=== PATIENT | female | born 1960 | race African-American/Black ===

== ENCOUNTER 2019-02-27 09:36 | Observation (INO) | payer BC ==
--- NOTE | 2019-02-27 09:58 | ER Document Report ---
ED Medical Screen (RME) - General Chief Complaint: Leg Pain Stated Complaint: LEG PAIN Time Seen by Provider: 02/27/19 09:47 Mode of Arrival: Wheelchair Information source: Patient Notes: Patient presents complaining of right leg pain. Patient states that she had attempted to treat her leg pain with topical tiger balm and thinks that she may be having an allergic reaction to the medicine. Patient with extensive swelling and erythema and purulent drainage that is weeping from her wounds. Patient only reports a history of RA and OA. I have greeted and performed a rapid initial assessment of this patient. A comprehensive ED assessment and evaluation of the patient, analysis of test results and completion of the medical decision making process will be conducted by additional ED providers. TRAVEL OUTSIDE OF THE [place] IN LAST 30 DAYS: No - Related Data Allergies/Adverse Reactions: No Known Allergies Allergy (Verified 02/27/19 09:37) Physical Exam - Vital signs Vitals: Temp Pulse Resp BP Pulse Ox 98.6 F 113 H 16 137/61 H 96 02/27/19 09:48 02/27/19 09:48 02/27/19 09:48 02/27/19 09:48 02/27/19 09:48 - General Notes: 3+ edema to right lower extremity with erythema and purulent drainage weeping from wounds Course - Vital Signs Vital signs: Temp Pulse Resp BP Pulse Ox 98.6 F 113 H 16 137/61 H 96 02/27/19 09:48 02/27/19 09:48 02/27/19 09:48 02/27/19 09:48 02/27/19 09:48
--- NOTE | 2019-02-27 11:18 | ER Document Report ---
ED Extremity Problem, Lower - General Chief Complaint: Leg Pain Stated Complaint: LEG PAIN Time Seen by Provider: 02/27/19 09:47 Mode of Arrival: Wheelchair Information source: Patient Notes: Chief complaint: Right lower leg swelling History of complain:( obtained from----patient) 58 years old female presents today with right lower leg gradual swelling redness as well as oozing serosanguineous fluid for the last few days. Denies any pain. Denies any difficulty in breathing. Denies any fever chills or other constitutional symptoms. Onset: As above Duration: Gradual Severity: Moderate Quality: Unknown Context: Unknown Exacerbating factor and relieving factors: None REVIEW OF SYSTEMS: CONSTITUTIONAL : Denies fever, chills, or sweats. Denies recent illness. EENT: Denies eye, ear, throat, or mouth pain or symptoms. Denies nasal or sinus congestion or discharge. Denies throat, tongue, or mouth swelling or difficulty swallowing. CARDIOVASCULAR: Denies chest pain. Denies palpitations or racing or irregular heart beat. Denies ankle edema. RESPIRATORY: Denies cough, cold, or chest congestion. Denies shortness of breath, difficulty breathing, or wheezing. GASTROINTESTINAL: Denies distention. Denies nausea, vomiting, or diarrhea. Denies blood in vomitus, stools, or per rectum. Denies black, tarry stools. Denies constipation. GENITOURINARY: Denies difficulty urinating, painful urination, burning, frequency, blood in urine, or discharge. FEMALE GENITOURINARY: Denies vaginal bleeding, heavy or abnormal periods, irregular periods. Denies vaginal discharge or odor. MUSCULOSKELETAL: As per history of complain SKIN: Denies rash, lesions or sores. HEMATOLOGIC : Denies easy bruising or bleeding. LYMPHATIC: Denies swollen, enlarged glands. NEUROLOGICAL: Denies confusion or altered mental status. Denies passing out or loss of consciousness. Denies dizziness or lightheadedness. Denies headache. Denies weakness or paralysis or loss of use of either side. Denies problems with gait or speech. Denies sensory loss, numbness, or tingling. Denies seizures. PSYCHIATRIC: Denies anxiety or stress. Denies depression, suicidal ideation, or homicidal ideation. ALL OTHER SYSTEMS REVIEWED AND NEGATIVE. PHYSICAL EXAMINATION: GENERAL: Well-appearing, well-nourished and in no acute distress. Not seems to be in any acute distress HEAD: Atraumatic, normocephalic. EYES: Pupils equal round and reactive to light, extraocular movements intact, conjunctiva are normal. ENT: Nares patent, oropharynx clear without exudates. Moist mucous membranes. NECK: Normal range of motion, supple without lymphadenopathy LUNGS: Breath sounds clear to auscultation bilaterally and equal. No wheezes rales or rhonchi. HEART: Regular rate and rhythm without murmurs ABDOMEN: Soft, nontender, nondistended abdomen. No guarding, no rebound. No masses appreciated. Examination of genitals-deferred Musculoskeletal: Examination of the right lower leg, the entire leg is double the size of the left one, with diffuse erythema to mites warm and tender to touch, multiple pustules, which are oozing serosanguineous fluid. NEUROLOGICAL: Cranial nerves grossly intact. Normal speech, normal gait. Normal sensory, motor exams PSYCH: Normal mood, normal affect. SKIN: Warm, Dry, normal turgor, no rashes or lesions noted. Dictation was performed using [employer] voice recognition software TRAVEL OUTSIDE OF THE [place] IN LAST 30 DAYS: No - HPI Notes: Dictated - Related Data Allergies/Adverse Reactions: No Known Allergies Allergy (Verified 02/27/19 09:37) Past Medical History - General Information source: Patient - Social History Smoking Status: Never Smoker Frequency of alcohol use: None Lives with: Family Family History: Reviewed & Not Pertinent Patient has suicidal ideation: No Patient has homicidal ideation: No Review of Systems - Review of Systems Notes: Dictated Physical Exam - Vital signs Vitals: Temp Pulse Resp BP Pulse Ox 98.6 F 113 H 16 137/61 H 96 02/27/19 09:48 02/27/19 09:48 02/27/19 09:48 02/27/19 09:48 02/27/19 09:48 - Notes Notes: Dictated Course - Vital Signs Vital signs: Temp Pulse Resp BP Pulse Ox 98.6 F 113 H 16 137/61 H 96 02/27/19 09:48 02/27/19 09:48 02/27/19 09:48 02/27/19 09:48 02/27/19 09:48 - Laboratory Result Diagrams: 02/27/19 11:26 02/27/19 11:26 Laboratory results interpreted by me: 02/27/19 02/27/19 11:26 11:26 Hgb 10.7 L Hct 31.9 L Potassium 3.3 L Est GFR (MDRD) Non-Af 59 L - Diagnostic Test Radiology reviewed: Reports reviewed - Venous Doppler studies reported by video technician as negative for DVT Discharge - Discharge Clinical Impression: Cellulitis of right leg, Leg edema, right Condition: Fair Disposition: ADMITTED INPATIENT Admitting Provider: Alexia (Hospitalist)
[2019-02-27 11:50] LABS: ABSOLUTE BASOPHILS # (AUTO) 0.1 10^3/uL (0.0-0.2); ABSOLUTE EOSINOPHILS # (AUTO) 0.3 10^3/uL (0.0-0.6); ABSOLUTE LYMPHOCYTES (AUTO) 1.8 10^3/uL (0.5-4.7); ABSOLUTE MONOCYTES (AUTO) 1.1 10^3/uL (0.1-1.4); ABSOLUTE NEUT (AUTO) 7.1 10^3/uL (1.7-8.2); BASOPHILS % (AUTO) 0.6 % (0-2); EOSINOPHILS % (AUTO) 2.9 % (0-6); HEMATOCRIT 31.9 % (36.0-47.0); HEMOGLOBIN 10.7 g/dL (12.0-15.5); LYMPHOCYTES % (AUTO) 17.7 % (13-45); MEAN CORPUSCULAR HGB CONC 33.6 g/dL (32.0-36.0); MEAN CORPUSCULAR VOLUME 80 fl (80-97); MONOCYTES % (AUTO) 10.7 % (3-13); PLATELET COUNT 320 10^3/uL (150-450); RED BLOOD COUNT 3.98 10^6/uL (3.72-5.28); RED CELL DISTRIBUTION WIDTH 13.7 % (11.5-14.0); SEGMENTED NEUTROPHILS % (AUTO) 68.1 % (42-78); TOTAL CELLS COUNTED % (AUTO) 100 %; WHITE BLOOD COUNT 10.4 10^3/uL (4.0-10.5)
[2019-02-27 12:09] LABS: ALBUMIN 3.8 g/dL (3.5-5.0); ALKALINE PHOSPHATASE 73 U/L (38-126); ANION GAP 11 (5-19); ASPARTATE AMINO TRANSFERASE 26 U/L (14-36); BILIRUBIN,DIRECT 0.2 mg/dL (0.0-0.4); BILIRUBIN,TOTAL 0.5 mg/dL (0.2-1.3); BLOOD UREA NITROGEN 17 mg/dL (7-20); CALCIUM 9.1 mg/dL (8.4-10.2); CARBON DIOXIDE 28 mmol/L (22-30); CHLORIDE 102 mmol/L (98-107); GLUCOSE 108 mg/dL (75-110); POTASSIUM 3.3 mmol/L (3.6-5.0); TOTAL PROTEIN 7.4 g/dL (6.3-8.2)
[2019-02-27] MEDS ORDERED: ONDANSETRON HCL INJ/PF 4 MG/2 ML SDV IV PRN (14:43)
--- NOTE | 2019-02-27 14:43 | PDOC H&P ---
History of Present Illness Patient complains of: rt lower leg swelling and pain History of Present Illness: YADI LI is a 58 year old female with history of rheumatoid arthritis and osteoarthritis taking Aleve for pain went to see the primary care physician today with complaints of right lower leg swelling associated with the increased redness pain oozing and she was referred to the emergency room for further evaluation. In the emergency room work-up indicates cellulitis with possible skin abscesses and a DVT studies are negative medical consult was called for further management. Patient never had a history of diabetes hypertension or congestive heart failure. She did not have any wounds in the lower extremities prior to this arrival. Denies any fevers denies any nausea vomiting diarrhea or skin rashes at home. Past Medical History Cardiac Medical History: Reports: None Pulmonary Medical History: Reports: None EENT Medical History: Reports: None Neurological Medical History: Reports: None Endocrine Medical History: Reports: None Malignancy Medical History: Reports: None GI Medical History: Reports: None Psychiatric Medical History: Reports: None Traumatic Medical History: Reports: None Infectious Medical History: Reports: None Social History Information Source: Patient Lives with: Family Smoking Status: Never Smoker Frequency of Alcohol Use: None Hx Recreational Drug Use: No Hx Prescription Drug Abuse: No - Advance Directive Resuscitation Status: Full Code Family History Family History: Reviewed & Not Pertinent Parental Family History Reviewed: Yes - Family history of hypertension diabetes mellitus Children Family History Reviewed: Yes Sibling(s) Family History Reviewed.: Yes Medication/Allergy Allergies/Adverse Reactions: No Known Allergies Allergy (Verified 02/27/19 09:37) Review of Systems Constitutional: PRESENT: fatigue, weakness. ABSENT: fever(s), headache(s), night sweats Eyes: ABSENT: visual disturbances Ears: ABSENT: hearing changes Nose, Mouth, and Throat: ABSENT: sore throat Cardiovascular: ABSENT: dyspnea on exertion, orthropnea, palpitations Respiratory: ABSENT: hemoptysis Gastrointestinal: ABSENT: abdominal pain, constipation, diarrhea, hematemesis, hematochezia, nausea, vomiting Genitourinary: ABSENT: dysuria, hematuria Musculoskeletal: PRESENT: other - Pain in the lower extremity Integumentary: PRESENT: wounds - Patient has right lower leg cellulitis with wounds and possible abscesses. Neurological: ABSENT: abnormal gait, abnormal speech, confusion, dizziness, focal weakness, syncope Psychiatric: ABSENT: anxiety, depression, homidical ideation, suicidal ideation Physical Exam Vital Signs: Temp Pulse Resp BP Pulse Ox 98.6 F 113 H 16 137/61 H 96 02/27/19 09:48 02/27/19 09:48 02/27/19 09:48 02/27/19 09:48 02/27/19 09:48 Intake & Output 02/26/19 02/27/19 02/28/19 06:59 06:59 06:59 Weight 95.254 kg General appearance: PRESENT: no acute distress, obese Head exam: PRESENT: atraumatic Eye exam: PRESENT: PERRLA Mouth exam: PRESENT: moist, tongue midline Teeth exam: PRESENT: poor dentation Neck exam: ABSENT: carotid bruit, JVD, lymphadenopathy, thyromegaly Respiratory exam: PRESENT: decreased breath sounds Cardiovascular exam: PRESENT: RRR. ABSENT: diastolic murmur, rubs, systolic murmur GI/Abdominal exam: PRESENT: normal bowel sounds, soft. ABSENT: distended, gu arding, mass, organolmegaly, rebound, tenderness Rectal exam: PRESENT: deferred Extremities exam: PRESENT: tenderness, +2 edema, other - Patient has past failed skin lesions and abscess on the anterior aspect of the right lower leg. Neurological exam: PRESENT: alert, awake, oriented to person, oriented to place, oriented to time, oriented to situation, CN II-XII grossly intact. ABSENT: motor sensory deficit Psychiatric exam: PRESENT: appropriate affect, normal mood. ABSENT: homicidal ideation, suicidal ideation Skin exam: PRESENT: erythema, vesicles Results Laboratory Results: 02/27/19 11:26 02/27/19 11:26 02/27/19 02/27/19 11:26 11:26 WBC 10.4 RBC 3.98 Hgb 10.7 L Hct 31.9 L MCV 80 MCH 27.0 MCHC 33.6 RDW 13.7 Plt Count 320 Seg Neutrophils % 68.1 Sodium 141.1 Potassium 3.3 L Chloride 102 Carbon Dioxide 28 Anion Gap 11 BUN 17 Creatinine 0.96 Est GFR ( Amer) > 60 Glucose 108 Calcium 9.1 Total Bilirubin 0.5 AST 26 Alkaline Phosphatase 73 Total Protein 7.4 Albumin 3.8 02/27/19 11:26 NT-Pro-B Natriuret Pep 35 Assessment and Plan - Diagnosis (1) Cellulitis of right leg Is this a current diagnosis for this admission?: Yes Plan: 02/27/2019 1 patient is going to be admitted to medical floor. To start her on IV Unasyn. Blood cultures urine cultures MRSA screening was done. GI prophylaxis DVT prophylaxis will be initiated. Consultation with surgery was requested. Diet exercise weight loss recommended. DVT studies are negative. May need arterial Doppler. (2) Obesity (BMI 30-39.9) Is this a current diagnosis for this admission?: No Plan: 02/27/2019-patient BMI is more than 39 diet exercise weight loss lifestyle mo difications are discussed with the patient. (3) Hypokalemia Is this a current diagnosis for this admission?: Yes Plan: 02/27- pt potassium is 3.3 .. to give potassium suplementation. - Time Time Spent with patient: 25-34 minutes Smoking Cessation Education: over 10 minutes Medications reviewed and adjusted accordingly: Yes Anticipated discharge: Home
[2019-02-27] MEDS ORDERED: OXYCODONE-ACETAMINOPHEN 5-325 MG TABLET PO PRN (14:53)
--- NOTE | 2019-02-27 14:58 | XCELERA REPORT ---
[address] [facility] [address] [facility] Extrem[facility] Venous Evaluation Procedure: Color flow and duplex imaging of the veins of the right lower extremity as well as the left Common Femoral vein. Right Sided Venous Evaluation Some limitation due to presence of weeping and blisters. Normal vessel filling wall to wall, compression and augmentation as well as Colour flow down to the infrageniculate veins. Left Sided Venous Evaluation The left common femoral vein is fully compressible. Spontaneous and phasic flow is present in the left common femoral vein. Interpretation Summary No duplex evidence of DVT or obstruction in the right lower extremity nor in the left Common Femoral vein. Name: YADI LI Age: 58 yrs Gender: Female : 1960 Patient Status: Emergency Patient Location: ER Study Date: 02/27/2019 12:01 PM Reason For Study: Right leg swelling/rule out DVT Ordering Physician: KENNY CASEY Performed By: Ana Cristina Pemberton : KENNY CASEY > Wilian Gutierrez
[2019-02-27] MEDS ORDERED: AMPICILLIN SOD/SULBACTAM 3 GM VIAL IV SCH (15:00)
[2019-02-27 15:22] LABS: INTERNATIONAL RATION (INR) 1.13; PROTHROMBIN TIME 14.6 SEC (11.4-15.4)
--- NOTE | 2019-02-27 15:38 | PDOC CONSULTATION ---
Consultation Consult Date: 02/27/19 Provider Consulted: MARYAM DUPREE Consult reason:: Right leg cellulitis and blistering History of Present Illness Admission Date/PCP: 02/27/19 15:12 History of Present Illness: YADI LI is a 58 year old female, morbidly obese, with a 3-4 day hx of leg redness, swelling, and blistering. Because of the symptoms, the patient is applied a topical corticosteroid cream with worsening of the symptoms. She presents the emergency room with a ball of the leg and above symptoms. Past Medical History Cardiac Medical History: Reports: None Pulmonary Medical History: Reports: None EENT Medical History: Reports: None Neurological Medical History: Reports: None Endocrine Medical History: Reports: None Malignancy Medical History: Reports: None GI Medical History: Reports: None Psychiatric Medical History: Reports: None Traumatic Medical History: Reports: None Infectious Medical History: Reports: None Social History Lives with: Family Smoking Status: Never Smoker Frequency of Alcohol Use: None Hx Recreational Drug Use: No Hx Prescription Drug Abuse: No - Advance Directive Resuscitation Status: Full Code Family History Family History: Reviewed & Not Pertinent Parental Family History Reviewed: No Children Family History Reviewed: No Sibling(s) Family History Reviewed.: No Medication/Allergy Allergies/Adverse Reactions: No Known Allergies Allergy (Verified 02/27/19 09:37) Physical Exam Vital Signs: Temp Pulse Resp BP Pulse Ox 98.6 F 113 H 16 137/61 H 96 02/27/19 09:48 02/27/19 09:48 02/27/19 09:48 02/27/19 09:48 02/27/19 09:48 Intake & Output 02/26/19 02/27/19 02/28/19 06:59 06:59 06:59 Weight 95.254 kg General appearance: PRESENT: no acute distress, obese Head exam: PRESENT: atraumatic, normocephalic Eye exam: PRESENT: EOMI Mouth exam: PRESENT: moist, neck supple Respiratory exam: PRESENT: clear to auscultation gideon Cardiovascular exam: PRESENT: RRR GI/Abdominal exam: PRESENT: normal bowel sounds, soft, other - obese Rectal exam: PRESENT: deferred Extremities exam: PRESENT: full ROM, other - Right Lower extrermity= edema of the leg down to toes, diffuse erythema of the lower distal 1/2 leg, assiciated with circumferential blistering of skin, no odor, serous drainage Musculoskeletal exam: PRESENT: full ROM Skin exam: PRESENT: other - see above Results Laboratory Results: 02/27/19 11:26 02/27/19 11:26 02/27/19 02/27/19 11:26 11:26 WBC 10.4 RBC 3.98 Hgb 10.7 L Hct 31.9 L MCV 80 MCH 27.0 MCHC 33.6 RDW 13.7 Plt Count 320 Seg Neutrophils % 68.1 Sodium 141.1 Potassium 3.3 L Chloride 102 Carbon Dioxide 28 Anion Gap 11 BUN 17 Creatinine 0.96 Est GFR ( Amer) > 60 Glucose 108 Calcium 9.1 Total Bilirubin 0.5 AST 26 Alkaline Phosphatase 73 Total Protein 7.4 Albumin 3.8 02/27/19 11:26 NT-Pro-B Natriuret Pep 35 Assessment & Plan - Diagnosis (1) Cellulitis of right leg Is this a current diagnosis for this admission?: Yes (2) Leg edema, right Is this a current diagnosis for this admission?: Yes - Plan Summary Plan Summary: Assessment Morbid obese patient with right leg diffuse edema, erythema, and skin blistering with serous drainage Above symptoms worsened by the use of topical corticosteroid cream RLE venous duplex is negative for DVT WBC within normal limits Plan: I agree with admission Agree with choice of IV antibiotics By triple antibiotic ointment to the entire leg followed by Xeroform gauze Ker lix and Sorin bandages Keep the right lower extremity elevated above heart level Strict bedrest with bathroom privileges Will will follow the patient daily
[2019-02-27 15:44] LABS: TROPONIN I < 0.012 ng/mL
--- NOTE | 2019-02-27 15:45 | RADIOLOGY REPORT (SQ) ---
EXAM DESCRIPTION: CHEST 2 VIEWS COMPLETED DATE/TIME: 02/27/2019 3:15 pm REASON FOR STUDY: shortness of breath COMPARISON: None. EXAM PARAMETERS: NUMBER OF VIEWS: two views TECHNIQUE: Digital Frontal and Lateral radiographic views of the chest acquired. RADIATION DOSE: NA LIMITATIONS: none FINDINGS: LUNGS AND PLEURA: No opacities, masses or pneumothorax. No pleural effusion. MEDIASTINUM AND HILAR STRUCTURES: No masses or contour abnormalities. HEART AND VASCULAR STRUCTURES: Heart normal size. No evidence for failure. BONES: No acute findings. HARDWARE: None in the chest. OTHER: No other significant finding. IMPRESSION: NO ACUTE RADIOGRAPHIC FINDING IN THE CHEST. TECHNICAL DOCUMENTATION: JOB ID: [id number] [employer]- All Rights Reserved Reading location - IP/workstation name: [email or web address]
--- NOTE | 2019-02-27 16:06 | RADIOLOGY REPORT (SQ) ---
EXAM DESCRIPTION: TIBIA FIBULA RIGHT COMPLETED DATE/TIME: 02/27/2019 3:46 pm REASON FOR STUDY: bone tenderness COMPARISON: None. NUMBER OF VIEWS: Two views. TECHNIQUE: Two radiographic images acquired of the right tibia and fibula to include the knee and an kle in at least one projection. LIMITATIONS: None. FINDINGS: MINERALIZATION: Normal. BONES: No acute fracture or dislocation. No worrisome bone lesions. SOFT TISSUES: There is diffuse soft tissue edema. OTHER: No other significant finding. IMPRESSION: Soft tissue edema. No underlying bony abnormality. TECHNICAL DOCUMENTATION: JOB ID: [id number] [employer]- All Rights Reserved Reading location - IP/workstation name: [email or web address]
[2019-02-27] MEDS: PANTOPRAZOLE SODIUM 40 MG TABLET.DR PO SCH (17:03)
[2019-02-27] MEDS: MUPIROCIN 2% OINTMENT 22 GM TP SCH (17:03)
[2019-02-27] MEDS ORDERED: MUPIROCIN 2% OINTMENT 22 GM TP SCH (18:00)
[2019-02-27] MEDS ORDERED: AMPICILLIN SODIUM/SULBACTAM NA 3 GM in NORMAL SALINE 100 ML IV SCH (18:00)
[2019-02-27] MEDS: DOCUSATE SODIUM 100 MG CAPSULE PO SCH (18:54)
[2019-02-27] MEDS: AMPICILLIN SODIUM/SULBACTAM NA 3 GM in NORMAL SALINE 100 ML IV SCH (22:54)
[2019-02-27] MEDS: NORMAL SALINE 1000 ML 1,000 ML IV PRN (22:55)
[2019-02-27 23:54] LABS: CREATINE KINASE MB 0.48 ng/mL (<4.55)
[2019-02-27 23:59] LABS: TROPONIN I < 0.012 ng/mL
[2019-02-28] MEDS: AMPICILLIN SODIUM/SULBACTAM NA 3 GM in NORMAL SALINE 100 ML IV SCH ×4 (05:29→20:55)
[2019-02-28] MEDS: PANTOPRAZOLE SODIUM 40 MG TABLET.DR PO SCH ×2 (05:30→17:06)
[2019-02-28 06:32] LABS: ABSOLUTE BASOPHILS # (AUTO) 0.1 10^3/uL (0.0-0.2); ABSOLUTE EOSINOPHILS # (AUTO) 0.4 10^3/uL (0.0-0.6); ABSOLUTE LYMPHOCYTES (AUTO) 2.3 10^3/uL (0.5-4.7); ABSOLUTE MONOCYTES (AUTO) 0.9 10^3/uL (0.1-1.4); ABSOLUTE NEUT (AUTO) 5.1 10^3/uL (1.7-8.2); BASOPHILS % (AUTO) 0.7 % (0-2); HEMATOCRIT 28.3 % (36.0-47.0); HEMOGLOBIN 9.5 g/dL (12.0-15.5); LYMPHOCYTES % (AUTO) 26.6 % (13-45); MEAN CORPUSCULAR HEMOGLOBIN 26.9 pg (27.0-33.4); MEAN CORPUSCULAR HGB CONC 33.5 g/dL (32.0-36.0); MEAN CORPUSCULAR VOLUME 81 fl (80-97); MONOCYTES % (AUTO) 10.1 % (3-13); PLATELET COUNT 316 10^3/uL (150-450); RED BLOOD COUNT 3.52 10^6/uL (3.72-5.28); RED CELL DISTRIBUTION WIDTH 13.9 % (11.5-14.0); SEGMENTED NEUTROPHILS % (AUTO) 58.6 % (42-78); TOTAL CELLS COUNTED % (AUTO) 100 %; WHITE BLOOD COUNT 8.7 10^3/uL (4.0-10.5)
[2019-02-28 06:57] LABS: ALBUMIN 3.1 g/dL (3.5-5.0); ALKALINE PHOSPHATASE 64 U/L (38-126); ANION GAP 9 (5-19); ASPARTATE AMINO TRANSFERASE 21 U/L (14-36); BILIRUBIN,DIRECT 0.2 mg/dL (0.0-0.4); BILIRUBIN,TOTAL 0.4 mg/dL (0.2-1.3); BLOOD UREA NITROGEN 15 mg/dL (7-20); CALCIUM 8.3 mg/dL (8.4-10.2); CARBON DIOXIDE 26 mmol/L (22-30); CHLORIDE 107 mmol/L (98-107); CHOLESTEROL 166.39 mg/dL (0-200); GLUCOSE 81 mg/dL (75-110); POTASSIUM 3.7 mmol/L (3.6-5.0); TOTAL PROTEIN 6.4 g/dL (6.3-8.2); TRIGLYCERIDES 66 mg/dL (<150)
[2019-02-28 07:05] LABS: CREATINE KINASE MB 0.47 ng/mL (<4.55)
[2019-02-28 07:08] LABS: DIRECT LDL 116 mg/dL (<100)
[2019-02-28 07:13] LABS: TROPONIN I < 0.012 ng/mL
[2019-02-28] MEDS: MUPIROCIN 2% OINTMENT 22 GM TP SCH ×2 (09:47→17:04)
[2019-02-28] MEDS: ENOXAPARIN SODIUM INJ 40 MG/0.4 ML DISP.SYRIN SUBCUT SCH (09:51)
[2019-02-28] MEDS: DOCUSATE SODIUM 100 MG CAPSULE PO SCH ×2 (09:51→17:05)
--- NOTE | 2019-02-28 14:20 | Operative Report ---
Operative Report DATE OF SURGERY: 02/28/19 Operative Report: Debridement right lower leg blisters 10x25 cm with 2x2 cm full skin thickness. PREOPERATIVE DIAGNOSIS: Blisters with one area of full thickness skin blister about 2x2 cm. POSTOPERATIVE DIAGNOSIS: same OPERATION: With the patient supine in bed, the dressings was then taken down. This revealed an extensive area of blister formation wih yellowish collection underneath. This area is about 10x25 cm occupying the whole circumference just above the right ankle. The blisters with underlying formed exudate was rhensharply debrided with scissors and scalpel.There was one area about 2x2 cm with fulll skin thickness that that was also sharply dedrided. There was some clear fluid coming off the skin that was debrided. Patient tolerated well. with minimal bleedig. The wound will be treated with topical silvadene 2x/day then can try compression therapy after a few days. SURGEON: JASMYNE DAVIS TISSUE REMOVED OR ALTERED: Partial skin thickness. No specimen sent for C/S COMPLICATIONS: none ESTIMATED BLOOD LOSS: <1 cc. INTRAOPERATIVE FINDINGS: Blisters all over the right above ankle area about 10 cm circumferential right lower leg PROCEDURE: See operation
[2019-02-28] MEDS: NORMAL SALINE 1000 ML 1,000 ML IV PRN (14:54)
[2019-02-28] MEDS: SILVER SULFADIAZINE 1% CREAM 400 GM TP SCH ×2 (14:54→21:00)
--- NOTE | 2019-02-28 19:10 | PDOC PROGRESS REPORT ---
Subjective Progress Note for:: 02/28/19 Subjective:: YADI LI is a 58 year old female with history of rheumatoid arthritis and osteoarthritis taking Aleve for pain went to see the primary care physician today with complaints of right lower leg swelling associated with the increased redness pain oozing and she was referred to the emergency room for further evaluation. In the emergency room work-up indicates cellulitis with possible skin abscesses and a DVT studies are negative medical consult was called for further management. Patient never had a history of diabetes hypertension or congestive heart failure. She did not have any wounds in the lower extremities prior to this arrival. Denies any fevers denies any nausea vomiting diarrhea or skin rashes at home. Reason For Visit: CELLULITIS/ABSCESS Physical Exam Vital Signs: Temp Pulse Resp BP Pulse Ox 99.6 F 102 H 20 132/71 H 99 02/28/19 14:00 02/28/19 14:00 02/28/19 14:00 02/28/19 14:00 02/28/19 14:00 Intake & Output 02/27/19 02/28/19 03/01/19 06:59 06:59 06:59 Intake Total 200 1460 Balance 200 1460 Weight 95.254 kg General appearance: PRESENT: no acute distress, obese, well-developed, well- nourished Eye exam: PRESENT: conjunctiva pink, EOMI, PERRLA. ABSENT: scleral icterus Respiratory exam: PRESENT: clear to auscultation gideon. ABSENT: rales, rhonchi, wheezes GI/Abdominal exam: PRESENT: normal bowel sounds, soft. ABSENT: distended, guarding, mass, organolmegaly, rebound, tenderness Skin exam: PRESENT: erythema Results Laboratory Results: 02/28/19 05:35 02/28/19 05:35 02/28/19 02/28/19 02/28/19 05:35 05:35 05:35 WBC 8.7 RBC 3.52 L Hgb 9.5 L Hct 28.3 L MCV 81 MCH 26.9 L MCHC 33.5 RDW 13.9 Plt Count 316 Seg Neutrophils % 58.6 Sodium 141.9 Potassium 3.7 Chloride 107 Carbon Dioxide 26 Anion Gap 9 BUN 15 Creatinine 0.92 Est GFR ( Amer) > 60 Glucose 81 Calcium 8.3 L Magnesium 2.0 Total Bilirubin 0.4 AST 21 Alkaline Phosphatase 64 Total Protein 6.4 Albumin 3.1 L Triglycerides 66 Cholesterol 166.39 LDL Cholesterol Direct 116 H VLDL Cholesterol 13.0 HDL Cholesterol 34 L TSH 2.06 02/27/19 11:26 Leg - Lower Gram Stain - Final 02/27/19 02/27/19 02/27/19 11:26 11:26 11:26 Creatine Kinase 126 CK-MB (CK-2) 0.70 Troponin I < 0.012 NT-Pro-B Natriuret Pep 35 02/27/19 02/27/19 02/28/19 22:15 22:15 05:35 Creatine Kinase 126 99 CK-MB (CK-2) 0.48 Troponin I < 0.012 NT-Pro-B Natriuret Pep 02/28/19 05:35 Creatine Kinase CK-MB (CK-2) 0.47 Troponin I < 0.012 NT-Pro-B Natriuret Pep Impressions: Chest X-Ray 02/27/19 00:00 IMPRESSION: NO ACUTE RADIOGRAPHIC FINDING IN THE CHEST. Tibia/Fibula X-Ray 02/27/19 00:00 IMPRESSION: Soft tissue edema. No underlying bony abnormality. Assessment and Plan - Diagnosis (1) Cellulitis of right leg Is this a current diagnosis for this admission?: Yes Plan: Likely due to gram-positives. Day 1 status post bedside I&D by surgery. Day 2 IV antibiotics. Day 2 IV Unasyn. Blood cultures no growth so far. Wound culture positive for gram-positive's. Pending sensitivity. Right lower extremity venous ultrasound negative for DVT. Right lower extremity x-ray negative for osteomyelitis. Continue empiric IV antibiotics, wound care. (2) Hypokalemia Is this a current diagnosis for this admission?: Yes Plan: Resolved. (3) Leg edema, right Is this a current diagnosis for this admission?: Yes Plan: Improving. As per #1. (4) Obesity (BMI 30-39.9) Is this a current diagnosis for this admission?: No Plan: BMI 39.1. A1c, TSH and lipid panel WNL. Diet and lifestyle modification discussed with patient.
[2019-03-01 05:58] LABS: ALBUMIN 3.1 g/dL (3.5-5.0); ALKALINE PHOSPHATASE 66 U/L (38-126); ANION GAP 6 (5-19); ASPARTATE AMINO TRANSFERASE 22 U/L (14-36); BILIRUBIN,DIRECT 0.2 mg/dL (0.0-0.4); BILIRUBIN,TOTAL 0.4 mg/dL (0.2-1.3); BLOOD UREA NITROGEN 14 mg/dL (7-20); CALCIUM 8.4 mg/dL (8.4-10.2); CARBON DIOXIDE 27 mmol/L (22-30); CHLORIDE 110 mmol/L (98-107); GLUCOSE 99 mg/dL (75-110); POTASSIUM 4.4 mmol/L (3.6-5.0); TOTAL PROTEIN 6.7 g/dL (6.3-8.2)
[2019-03-01] MEDS: PANTOPRAZOLE SODIUM 40 MG TABLET.DR PO SCH ×2 (06:23→17:14)
[2019-03-01] MEDS: AMPICILLIN SODIUM/SULBACTAM NA 3 GM in NORMAL SALINE 100 ML IV SCH ×4 (06:31→22:37)
[2019-03-01 06:58] LABS: ABSOLUTE BASOPHILS # (AUTO) 0.1 10^3/uL (0.0-0.2); ABSOLUTE EOSINOPHILS # (AUTO) 0.3 10^3/uL (0.0-0.6); ABSOLUTE LYMPHOCYTES (AUTO) 1.3 10^3/uL (0.5-4.7); ABSOLUTE MONOCYTES (AUTO) 0.5 10^3/uL (0.1-1.4); ABSOLUTE NEUT (AUTO) 5.6 10^3/uL (1.7-8.2); BASOPHILS % (AUTO) 0.8 % (0-2); EOSINOPHILS % (AUTO) 3.4 % (0-6); HEMATOCRIT 28.7 % (36.0-47.0); HEMOGLOBIN 9.5 g/dL (12.0-15.5); LYMPHOCYTES % (AUTO) 16.7 % (13-45); MEAN CORPUSCULAR HGB CONC 33.3 g/dL (32.0-36.0); MEAN CORPUSCULAR VOLUME 81 fl (80-97); MONOCYTES % (AUTO) 6.6 % (3-13); PLATELET COUNT 339 10^3/uL (150-450); RED BLOOD COUNT 3.54 10^6/uL (3.72-5.28); RED CELL DISTRIBUTION WIDTH 13.8 % (11.5-14.0); SEGMENTED NEUTROPHILS % (AUTO) 72.5 % (42-78); TOTAL CELLS COUNTED % (AUTO) 100 %; WHITE BLOOD COUNT 7.7 10^3/uL (4.0-10.5)
[2019-03-01] MEDS: MUPIROCIN 2% OINTMENT 22 GM TP SCH ×2 (09:38→17:15)
[2019-03-01] MEDS: ENOXAPARIN SODIUM INJ 40 MG/0.4 ML DISP.SYRIN SUBCUT SCH (09:42)
[2019-03-01] MEDS: DOCUSATE SODIUM 100 MG CAPSULE PO SCH ×2 (09:42→17:15)
[2019-03-01] MEDS: SILVER SULFADIAZINE 1% CREAM 400 GM TP SCH ×2 (09:55→22:38)
--- NOTE | 2019-03-01 12:16 | PDOC PROGRESS REPORT ---
Subjective Progress Note for:: 03/01/19 Subjective:: YADI LI is a 58 year old female with history of rheumatoid arthritis and osteoarthritis taking Aleve for pain went to see the primary care physician today with complaints of right lower leg swelling associated with the increased redness pain oozing and she was referred to the emergency room for further evaluation. In the emergency room work-up indicates cellulitis with possible skin abscesses and a DVT studies are negative medical consult was called for further management. Patient never had a history of diabetes hypertension or congestive heart failure. She did not have any wounds in the lower extremities prior to this arrival. Denies any fevers denies any nausea vomiting diarrhea or skin rashes at home. 03/01/2018. No acute events overnight. Right lower extremity pain improving, status post bedside I&D by surgery. Denies any fever, chills, nausea, vomiting, diarrhea, constipation or any urinary symptoms. Reason For Visit: CELLULITIS/ABSCESS Physical Exam Vital Signs: Temp Pulse Resp BP Pulse Ox 97.7 F 89 20 127/78 H 100 03/01/19 11:32 03/01/19 11:32 03/01/19 11:32 03/01/19 11:32 03/01/19 11:32 Intake & Output 02/28/19 03/01/19 03/02/19 06:59 06:59 06:59 Intake Total 200 3004 200 Balance 200 3004 200 Weight 95.254 kg 93.8 kg General appearance: PRESENT: morbidly obese Respiratory exam: PRESENT: clear to auscultation gideon. ABSENT: rales, rhonchi, wheezes Cardiovascular exam: PRESENT: RRR. ABSENT: diastolic murmur, rubs, systolic murmur GI/Abdominal exam: PRESENT: normal bowel sounds, soft. ABSENT: distended, guarding, mass, organolmegaly, rebound, tenderness Neurological exam: PRESENT: alert, awake, oriented to person, oriented to place, oriented to time, oriented to situation, CN II-XII grossly intact. ABSENT: motor sensory deficit Skin exam: PRESENT: other - Right lower extremity below-knee cellulitis improving. No side effect of discharge, erythema improving. Results Laboratory Results: 03/01/19 03:29 03/01/19 03:29 03/01/19 03/01/19 03:29 03:29 WBC 7.7 RBC 3.54 L Hgb 9.5 L Hct 28.7 L MCV 81 MCH 27.0 MCHC 33.3 RDW 13.8 Plt Count 339 Seg Neutrophils % 72.5 Sodium 142.7 Potassium 4.4 Chloride 110 H Carbon Dioxide 27 Anion Gap 6 BUN 14 Creatinine 0.85 Est GFR ( Amer) > 60 Glucose 99 Calcium 8.4 Total Bilirubin 0.4 AST 22 Alkaline Phosphatase 66 Total Protein 6.7 Albumin 3.1 L 02/27/19 11:26 Leg - Lower Gram Stain - Final 02/27/19 02/27/19 02/27/19 11:26 11:26 11:26 Creatine Kinase 126 CK-MB (CK-2) 0.70 Troponin I < 0.012 NT-Pro-B Natriuret Pep 35 02/27/19 02/27/19 02/28/19 22:15 22:15 05:35 Creatine Kinase 126 99 CK-MB (CK-2) 0.48 Troponin I < 0.012 NT-Pro-B Natriuret Pep 02/28/19 05:35 Creatine Kinase CK-MB (CK-2) 0.47 Troponin I < 0.012 NT-Pro-B Natriuret Pep Impressions: Chest X-Ray 02/27/19 00:00 IMPRESSION: NO ACUTE RADIOGRAPHIC FINDING IN THE CHEST. Tibia/Fibula X-Ray 02/27/19 00:00 IMPRESSION: Soft tissue edema. No underlying bony abnormality. Assessment and Plan - Diagnosis (1) Cellulitis of right leg Is this a current diagnosis for this admission?: Yes Plan: Polymicrobial. Wound culture growing group B strep and gram-positive cocci in clusters pending sensitivity. Day 1 status post bedside I&D by surgery. Day 3 IV antibiotics. Day 3 IV Unasyn. Blood cultures no growth so far. Right lower extremity venous ultrasound negative for DVT. Right lower extremity x-ray negative for osteomyelitis. Continue empiric IV antibiotics, follow-up cultures continue wound care. Surgery following. Recommendations noted. (2) Hypokalemia Is this a current diagnosis for this admission?: Yes Plan: Resolved. (3) Leg edema, right Is this a current diagnosis for this admission?: Yes Plan: Improving. As per #1. (4) Obesity (BMI 30-39.9) Is this a current diagnosis for this admission?: Yes Plan: BMI 39.1. A1c 6.1. TSH and lipid panel WNL. Diet and lifestyle modification discussed with patient. (5) Elevated hemoglobin A1c Is this a current diagnosis for this admission?: Yes Plan: Hemoglobin A1c 6.1. Fasting blood glucose WNL during hospitalization. Diet and lifestyle modification recommended. Outpatient PCP follow-up. Note: Hemoglobin A1c may be falsely elevated due to anemia. Patient will need to be reevaluated by PCP to rule out diabetes in the future. (6) Anemia Qualifiers: Anemia type: unspecified type Qualified Code(s): D64.9 - Anemia, unspecified Is this a current diagnosis for this admission?: Yes Plan: Normocytic anemia. Iron deficiency. Anemia of chronic disease. Denies any hematemesis, hemoptysis, easy bleeding, vaginal bleeding, melena or hematochezia. We will obtain stool guaiac Iron studies positive for iron deficiency anemia will consult surgery for possible endoscopy.
[2019-03-01 12:36] LABS: ABSOLUTE RETICS # 0.029 10^6/uL (0.028-0.122); RETICULOCYTE COUNT (AUTO) 0.81 % (0.66-2.85)
[2019-03-01 12:40] LABS: IRON(TIBC) 43.7 ug/dL (37-170)
[2019-03-02] MEDS: PANTOPRAZOLE SODIUM 40 MG TABLET.DR PO SCH ×2 (05:44→17:05)
[2019-03-02] MEDS: AMPICILLIN SODIUM/SULBACTAM NA 3 GM in NORMAL SALINE 100 ML IV SCH ×4 (05:50→21:08)
[2019-03-02 07:40] LABS: ABSOLUTE BASOPHILS # (AUTO) 0.1 10^3/uL (0.0-0.2); ABSOLUTE EOSINOPHILS # (AUTO) 0.3 10^3/uL (0.0-0.6); ABSOLUTE LYMPHOCYTES (AUTO) 1.4 10^3/uL (0.5-4.7); ABSOLUTE MONOCYTES (AUTO) 0.4 10^3/uL (0.1-1.4); ABSOLUTE NEUT (AUTO) 3.8 10^3/uL (1.7-8.2); EOSINOPHILS % (AUTO) 4.7 % (0-6); HEMATOCRIT 27.8 % (36.0-47.0); HEMOGLOBIN 9.3 g/dL (12.0-15.5); LYMPHOCYTES % (AUTO) 24.2 % (13-45); MEAN CORPUSCULAR HEMOGLOBIN 26.8 pg (27.0-33.4); MEAN CORPUSCULAR HGB CONC 33.4 g/dL (32.0-36.0); MEAN CORPUSCULAR VOLUME 80 fl (80-97); MONOCYTES % (AUTO) 6.4 % (3-13); PLATELET COUNT 389 10^3/uL (150-450); RED BLOOD COUNT 3.46 10^6/uL (3.72-5.28); RED CELL DISTRIBUTION WIDTH 13.6 % (11.5-14.0); SEGMENTED NEUTROPHILS % (AUTO) 63.7 % (42-78); TOTAL CELLS COUNTED % (AUTO) 100 %
[2019-03-02 07:54] LABS: ALBUMIN 3.1 g/dL (3.5-5.0); ALKALINE PHOSPHATASE 57 U/L (38-126); ANION GAP 7 (5-19); ASPARTATE AMINO TRANSFERASE 21 U/L (14-36); BILIRUBIN,DIRECT 0.2 mg/dL (0.0-0.4); BILIRUBIN,TOTAL 0.3 mg/dL (0.2-1.3); BLOOD UREA NITROGEN 9 mg/dL (7-20); CALCIUM 8.3 mg/dL (8.4-10.2); CARBON DIOXIDE 26 mmol/L (22-30); CHLORIDE 108 mmol/L (98-107); GLUCOSE 74 mg/dL (75-110); POTASSIUM 3.8 mmol/L (3.6-5.0); TOTAL PROTEIN 6.6 g/dL (6.3-8.2)
[2019-03-02] MEDS: MUPIROCIN 2% OINTMENT 22 GM TP SCH ×2 (09:50→17:05)
[2019-03-02] MEDS: DOCUSATE SODIUM 100 MG CAPSULE PO SCH ×2 (09:50→17:05)
[2019-03-02] MEDS: ENOXAPARIN SODIUM INJ 40 MG/0.4 ML DISP.SYRIN SUBCUT SCH (09:50)
[2019-03-02] MEDS: SILVER SULFADIAZINE 1% CREAM 400 GM TP SCH ×2 (09:51→21:10)
--- NOTE | 2019-03-02 12:24 | PDOC PROGRESS REPORT ---
Subjective Progress Note for:: 03/02/19 Subjective:: YADI LI is a 58 year old female with history of rheumatoid arthritis and osteoarthritis taking Aleve for pain went to see the primary care physician today with complaints of right lower leg swelling associated with the increased redness pain oozing and she was referred to the emergency room for further evaluation. In the emergency room work-up indicates cellulitis with possible skin abscesses and a DVT studies are negative medical consult was called for further management. Patient never had a history of diabetes hypertension or congestive heart failure. She did not have any wounds in the lower extremities prior to this arrival. Denies any fevers denies any nausea vomiting diarrhea or skin rashes at home. 03/01/2018. No acute events overnight. Right lower extremity pain improving, status post bedside I&D by surgery. Denies any fever, chills, nausea, vomiting, diarrhea, constipation or any urinary symptoms. 03/02/2019. No acute events overnight. Still complaining of bilateral lower extremity pain worse on the right side. It is improving compared to yesterday. Status post I&D by surgery on 02/2019. Denies any fever, chills, nausea, v omiting, diarrhea, constipation or any urinary symptoms. Reason For Visit: CELLULITIS/ABSCESS Physical Exam Vital Signs: Temp Pulse Resp BP Pulse Ox 98.4 F 97 16 130/75 H 100 03/02/19 08:00 03/02/19 08:00 03/02/19 08:00 03/02/19 08:00 03/02/19 08:00 Intake & Output 03/01/19 03/02/19 03/03/19 06:59 06:59 06:59 Intake Total 3004 1969 200 Balance 3004 1969 200 Weight 93.8 kg 94.1 kg General appearance: PRESENT: no acute distress, well-developed, well-nourished Eye exam: PRESENT: conjunctiva pink, EOMI, PERRLA. ABSENT: scleral icterus Respiratory exam: PRESENT: clear to auscultation gideon. ABSENT: rales, rhonchi, wheezes GI/Abdominal exam: PRESENT: normal bowel sounds, soft. ABSENT: distended, guarding, mass, organolmegaly, rebound, tenderness Neurological exam: PRESENT: alert, awake, oriented to person, oriented to place, oriented to time, oriented to situation, CN II-XII grossly intact. ABSENT: motor sensory deficit Skin exam: PRESENT: other - Right lower extremity below knee circumferential cellulitis status post I&D by surgery. No active discharge. Results Laboratory Results: 03/02/19 06:48 03/02/19 06:48 03/01/19 03/01/19 03/02/19 03:29 03:29 06:48 WBC 6.0 RBC 3.46 L Hgb 9.3 L Hct 27.8 L MCV 80 MCH 26.8 L MCHC 33.4 RDW 13.6 Plt Count 389 Seg Neutrophils % 63.7 Retic Count (auto) 0.81 Sodium Potassium Chloride Carbon Dioxide Anion Gap BUN Creatinine Est GFR ( Amer) Glucose Calcium Iron 43.7 TIBC 257 % Saturation 17 Ferritin 203.00 Total Bilirubin AST Alkaline Phosphatase Total Protein Albumin Vitamin B12 649.0 Folate 11.30 03/02/19 06:48 WBC RBC Hgb Hct MCV MCH MCHC RDW Plt Count Seg Neutrophils % Retic Count (auto) Sodium 141.1 Potassium 3.8 Chloride 108 H Carbon Dioxide 26 Anion Gap 7 BUN 9 Creatinine 0.68 Est GFR ( Amer) > 60 Glucose 74 L Calcium 8.3 L Iron TIBC % Saturation Ferritin Total Bilirubin 0.3 AST 21 Alkaline Phosphatase 57 Total Protein 6.6 Albumin 3.1 L Vitamin B12 Folate 02/27/19 11:26 Leg - Lower Gram Stain - Final 02/27/19 11:26 Leg - Lower Wound Culture - Final Staphylococcus Aureus Group B Beta Streptococcus 02/27/19 02/27/19 02/27/19 11:26 11:26 11:26 Creatine Kinase 126 CK-MB (CK-2) 0.70 Troponin I < 0.012 NT-Pro-B Natriuret Pep 35 02/27/19 02/27/19 02/28/19 22:15 22:15 05:35 Creatine Kinase 126 99 CK-MB (CK-2) 0.48 Troponin I < 0.012 NT-Pro-B Natriuret Pep 02/28/19 05:35 Creatine Kinase CK-MB (CK-2) 0.47 Troponin I < 0.012 NT-Pro-B Natriuret Pep Impressions: Chest X-Ray 02/27/19 00:00 IMPRESSION: NO ACUTE RADIOGRAPHIC FINDING IN THE CHEST. Tibia/Fibula X-Ray 02/27/19 00:00 IMPRESSION: Soft tissue edema. No underlying bony abnormality. Assessment and Plan - Diagnosis (1) Cellulitis of right leg Is this a current diagnosis for this admission?: Yes Plan: Polymicrobial. Gram-positives. Wound culture positive for group B streptococcus and staph aureus pansensitive. Day 2 status post bedside I&D by surgery. Day 4 IV antibiotics. Day 4 IV Unasyn. Blood cultures no growth so far. Right lower extremity venous ultrasound negative for DVT. Right lower extremity x-ray negative for osteomyelitis. Continue empiric IV antibiotics, follow-up cultures continue wound care. Surgery following. Pending final recommendation. Patient can be discharged home on p.o. antibiotics once surgery gives final recommendation. (2) Hypokalemia Is this a current diagnosis for this admission?: Yes Plan: Resolved. (3) Leg edema, right Is this a current diagnosis for this admission?: Yes Plan: Improving. As per #1. (4) Obesity (BMI 30-39.9) Is this a current diagnosis for this admission?: Yes Plan: BMI 39.1. A1c 6.1. TSH and lipid panel WNL. Diet and lifestyle modification discussed with patient. (5) Elevated hemoglobin A1c Is this a current diagnosis for this admission?: Yes Plan: Hemoglobin A1c 6.1. Fasting blood glucose WNL during hospitalization. Diet and lifestyle modification recommended. Outpatient PCP follow-up. Note: Hemoglobin A1c may be falsely elevated due to anemia. Patient will need to be reevaluated by PCP to rule out diabetes in the future. (6) Anemia Qualifiers: Anemia type: unspecified type Qualified Code(s): D64.9 - Anemia, unspecified Is this a current diagnosis for this admission?: Yes Plan: Normocytic anemia. Denies any hematemesis, hemoptysis, easy bleeding, vaginal bleeding, melena or hematochezia. Iron panel WNL. Stating that she has always had no anemia of likely cause.
[2019-03-02] MEDS: ACETAMINOPHEN 325 MG TABLET PO PRN (22:22)
[2019-03-03] MEDS: AMPICILLIN SODIUM/SULBACTAM NA 3 GM in NORMAL SALINE 100 ML IV SCH ×2 (04:18→08:06)
[2019-03-03] MEDS: PANTOPRAZOLE SODIUM 40 MG TABLET.DR PO SCH (05:28)
[2019-03-03 06:27] LABS: ABSOLUTE BASOPHILS # (AUTO) 0.1 10^3/uL (0.0-0.2); ABSOLUTE EOSINOPHILS # (AUTO) 0.2 10^3/uL (0.0-0.6); ABSOLUTE LYMPHOCYTES (AUTO) 1.3 10^3/uL (0.5-4.7); ABSOLUTE MONOCYTES (AUTO) 0.4 10^3/uL (0.1-1.4); ABSOLUTE NEUT (AUTO) 2.5 10^3/uL (1.7-8.2); BASOPHILS % (AUTO) 1.1 % (0-2); EOSINOPHILS % (AUTO) 5.1 % (0-6); HEMATOCRIT 28.2 % (36.0-47.0); HEMOGLOBIN 9.4 g/dL (12.0-15.5); LYMPHOCYTES % (AUTO) 29.7 % (13-45); MEAN CORPUSCULAR HEMOGLOBIN 26.6 pg (27.0-33.4); MEAN CORPUSCULAR HGB CONC 33.3 g/dL (32.0-36.0); MEAN CORPUSCULAR VOLUME 80 fl (80-97); MONOCYTES % (AUTO) 8.5 % (3-13); PLATELET COUNT 412 10^3/uL (150-450); RED BLOOD COUNT 3.54 10^6/uL (3.72-5.28); RED CELL DISTRIBUTION WIDTH 13.9 % (11.5-14.0); SEGMENTED NEUTROPHILS % (AUTO) 55.6 % (42-78); TOTAL CELLS COUNTED % (AUTO) 100 %; WHITE BLOOD COUNT 4.5 10^3/uL (4.0-10.5)
[2019-03-03 06:54] LABS: ALBUMIN 2.9 g/dL (3.5-5.0); ALKALINE PHOSPHATASE 55 U/L (38-126); ANION GAP 6 (5-19); ASPARTATE AMINO TRANSFERASE 22 U/L (14-36); BILIRUBIN,DIRECT 0.1 mg/dL (0.0-0.4); BILIRUBIN,TOTAL 0.3 mg/dL (0.2-1.3); BLOOD UREA NITROGEN 8 mg/dL (7-20); CALCIUM 8.5 mg/dL (8.4-10.2); CARBON DIOXIDE 29 mmol/L (22-30); CHLORIDE 108 mmol/L (98-107); GLUCOSE 80 mg/dL (75-110); POTASSIUM 3.7 mmol/L (3.6-5.0); TOTAL PROTEIN 6.5 g/dL (6.3-8.2)
[2019-03-03] MEDS: ACETAMINOPHEN 325 MG TABLET PO PRN (08:11)
[2019-03-03] MEDS: MUPIROCIN 2% OINTMENT 22 GM TP SCH (10:40)
[2019-03-03] MEDS: DOCUSATE SODIUM 100 MG CAPSULE PO SCH (10:41)
[2019-03-03] MEDS: SILVER SULFADIAZINE 1% CREAM 400 GM TP SCH (10:46)
[2019-03-03] MEDS: ENOXAPARIN SODIUM INJ 40 MG/0.4 ML DISP.SYRIN SUBCUT SCH (10:47)
--- NOTE | 2019-03-03 12:14 | PDOC PROGRESS REPORT ---
Subjective Progress Note for:: 03/03/19 Subjective:: pains right lower leg Reason For Visit: CELLULITIS/ABSCESS Physical Exam Vital Signs: Temp Pulse Resp BP Pulse Ox 98.5 F 83 14 137/68 H 100 03/03/19 08:00 03/03/19 08:00 03/03/19 08:00 03/03/19 08:00 03/03/19 08:00 Intake & Output 03/02/19 03/03/19 03/04/19 06:59 06:59 06:59 Intake Total 1968 2119 100 Balance 1968 212 100 Weight 94.1 kg 103.5 kg Exam: Stasis dermatitis along the right lower leg appears to be improving with Silvadene cream therapy. The right lower leg however still edematous. Results Laboratory Results: 03/03/19 06:03 03/03/19 06:03 03/03/19 03/03/19 06:03 06:03 WBC 4.5 RBC 3.54 L Hgb 9.4 L Hct 28.2 L MCV 80 MCH 26.6 L MCHC 33.3 RDW 13.9 Plt Count 412 Seg Neutrophils % 55.6 Sodium 142.7 Potassium 3.7 Chloride 108 H Carbon Dioxide 29 Anion Gap 6 BUN 8 Creatinine 0.72 Est GFR ( Amer) > 60 Glucose 80 Calcium 8.5 Total Bilirubin 0.3 AST 22 Alkaline Phosphatase 55 Total Protein 6.5 Albumin 2.9 L 02/27/19 02/27/19 02/27/19 11:26 11:26 11:26 Creatine Kinase 126 CK-MB (CK-2) 0.70 Troponin I < 0.012 NT-Pro-B Natriuret Pep 35 02/27/19 02/27/19 02/28/19 22:15 22:15 05:35 Creatine Kinase 126 99 CK-MB (CK-2) 0.48 Troponin I < 0.012 NT-Pro-B Natriuret Pep 02/28/19 05:35 Creatine Kinase CK-MB (CK-2) 0.47 Troponin I < 0.012 NT-Pro-B Natriuret Pep Impressions: Chest X-Ray 02/27/19 00:00 IMPRESSION: NO ACUTE RADIOGRAPHIC FINDING IN THE CHEST. Tibia/Fibula X-Ray 02/27/19 00:00 IMPRESSION: Soft tissue edema. No underlying bony abnormality. Assessment & Plan - Diagnosis (1) Venous stasis dermatitis of right lower extremity Is this a current diagnosis for this admission?: Yes (2) Cellulitis of right leg Is this a current diagnosis for this admission?: Yes - Time Time Spent with patient: 15-24 minutes - Plan Summary Plan Summary: Compression boot was placed over the right lower leg. She will need this every 3 to 4 days on outpatient basis. She can then be followed up at the wound care center. She can be discharged today
[2019-03-03 16:59] VITALS: BP 149/130
--- NOTE | 2019-03-05 17:10 | PDOC DISCHARGE SUMMARY ---
General - Admit/Disc Date/PCP Admission Date/Primary Care Provider: 02/27/19 15:09 Discharge Date: 03/03/19 - Discharge Diagnosis (1) Cellulitis of right leg Is this a current diagnosis for this admission?: Yes (2) Hypokalemia Is this a current diagnosis for this admission?: Yes (3) Leg edema, right Is this a current diagnosis for this admission?: Yes (4) Obesity (BMI 30-39.9) Is this a current diagnosis for this admission?: Yes (5) Elevated hemoglobin A1c Is this a current diagnosis for this admission?: Yes (6) Anemia Is this a current diagnosis for this admission?: Yes - Additional Information Resuscitation Status: Full Code Discharge Diet: As Tolerated Discharge Activity: Activity As Tolerated, Keep Legs Elevated Prescriptions: Clindamycin HCl [Cleocin 150 mg Capsule] 150 mg PO Q8 10 Days #30 capsule Home Medications: Baricitinib [Olumiant] 2 mg PO DAILY 02/27/19 Benzonatate [Tessalon Perle 100 mg Capsule] 100 mg PO TIDP PRN 02/27/19 Cider Vinegar [Apple Cider Vinegar 500 mg Tablet] 500 mg PO DAILY 02/27/19 Ergocalciferol (Vitamin D2) [Drisdol 50,000 unit (1.25MG) Capsule] 50,000 unit PO MO 02/27/19 Latanoprost [Xalatan 0.005% Oph Soln 2.5 ml] 1 drop OU QHS 02/27/19 Lisinopril/Hydrochlorothiazide [Zestoretic 10-12.5 mg Tablet] 1 tab PO DAILY 02/27/19 Turmeric/Turmeric Root Extract [Turmeric 500 mg Capsule] 1 cap PO DAILY 02/27/19 Clindamycin HCl [Cleocin 150 mg Capsule] 150 mg PO Q8 10 Days #30 capsule 03/03/19 History of Present Illness History of Present Illness: YADI LI is a 58 year old female with history of rheumatoid arthritis and osteoarthritis taking Aleve for pain went to see the primary care physician today with complaints of right lower leg swelling associated with the increased redness pain oozing and she was referred to the emergency room for further evaluation. In the emergency room work-up indicates cellulitis with possible skin abscesses and a DVT studies are negative medical consult was called for further management. Patient never had a history of diabetes hypertension or congestive heart failure. She did not have any wounds in the lower extremities prior to this arrival. Denies any fevers denies any nausea vomiting diarrhea or skin rashes at home. Hospital Course Hospital Course: (1) Cellulitis of right leg Polymicrobial. Gram-positives. She was consulted and patient received I&D at bedside. Wound culture positive for group B streptococcus and staph aureus pansensitive. Received 5 days of IV Unasyn. Was switched to clindamycin 150 mg p.o. 3 times daily for another 10 days. Compression boot was placed over the right lower leg by surgery. Follow-up with surgery clinic on 03/08/2019 was arranged. Blood cultures remained negative. Right lower extremity venous ultrasound negative for DVT. Right lower extremity x-ray negative for osteomyelitis. (2) Hypokalemia Was a started on hypokalemia protocol. (3) Leg edema, right Significant improvement. As per #1. (4) Obesity (BMI 30-39.9) BMI 39.1. A1c 6.1. TSH and lipid panel WNL. Diet and lifestyle modification discussed with patient. (5) Elevated hemoglobin A1c Hemoglobin A1c 6.1. Fasting blood glucose WNL during hospitalization. Diet and lifestyle modification recommended. Outpatient PCP follow-up. Note: Hemoglobin A1c may be falsely elevated due to anemia. Patient will need to be reevaluated by PCP to rule out diabetes in the future. (6) Anemia Normocytic anemia. Denied any hematemesis, hemoptysis, easy bleeding, vaginal bleeding, melena or hematochezia. Iron panel, B12 and folic acid WNL. Stating that she has always been anemic. Asymptomatic. Outpatient PCP follow-up. Physical Exam Vital Signs: Temp Pulse Resp BP Pulse Ox 98.7 F 89 14 131/66 H 100 03/03/19 15:29 03/03/19 15:29 03/03/19 15:29 03/03/19 15:29 03/03/19 15:29 Intake & Output 03/04/19 03/05/19 03/06/19 06:59 06:59 06:59 Intake Total 982 Balance 982 General appearance: PRESENT: no acute distress, obese, well-developed, well- nourished Respiratory exam: PRESENT: clear to auscultation gideon. ABSENT: rales, rhonchi, wheezes Cardiovascular exam: PRESENT: RRR. ABSENT: diastolic murmur, rubs, systolic murmur GI/Abdominal exam: PRESENT: normal bowel sounds, soft. ABSENT: distended, guarding, mass, organolmegaly, rebound, tenderness Musculoskeletal exam: PRESENT: ambulatory, other - Lower extremity below-knee wound looks clean, granulation tissue present, no sign of infection. Results Laboratory Results: 03/03/19 06:03 03/03/19 06:03 02/27/19 02/27/19 02/27/19 11:26 11:26 11:26 Creatine Kinase 126 CK-MB (CK-2) 0.70 Troponin I < 0.012 NT-Pro-B Natriuret Pep 35 02/27/19 02/27/19 02/28/19 22:15 22:15 05:35 Creatine Kinase 126 99 CK-MB (CK-2) 0.48 Troponin I < 0.012 NT-Pro-B Natriuret Pep 02/28/19 05:35 Creatine Kinase CK-MB (CK-2) 0.47 Troponin I < 0.012 NT-Pro-B Natriuret Pep Impressions: Chest X-Ray 02/27/19 00:00 IMPRESSION: NO ACUTE RADIOGRAPHIC FINDING IN THE CHEST. Tibia/Fibula X-Ray 02/27/19 00:00 IMPRESSION: Soft tissue edema. No underlying bony abnormality. Qualifiers - * PATIENT BEING DISCHARGED WITH ANY OF THE FOLLOWING DIAGNOSIS: No VTE patient discharged on overlapping Therapy?: Yes Acute Heart Failure - Is this a Heart Failure Patient?: No
== END 2019-03-03 17:04 | disposition home health service (06) ==
LOC: ER 09:36 → EH 15:09 → INTOOBSV 15:09 → EH 15:12 → UNDOADMIN 15:12 → 4S 18:31
PROVIDERS: ADMIT Internal Medicine; ATTEND Internal Medicine
PROC: 0HBKXZZ Excision of Right Lower Leg Skin, External Approach (ICD-10-PCS; principal; 2019-02-28)
DX: L03.115 Cellulitis of right lower limb (principal); B95.1 Streptococcus, group B, as the cause of diseases classified elsewhere; B95.61 Methicillin susceptible Staphylococcus aureus infection as the cause of diseases classified elsewhere; E87.6 Hypokalemia; R60.0 Localized edema; E66.01 Morbid (severe) obesity due to excess calories; R73.09 Other abnormal glucose; M06.9 Rheumatoid arthritis, unspecified; M19.90 Unspecified osteoarthritis, unspecified site; D50.9 Iron deficiency anemia, unspecified; D63.8 Anemia in other chronic diseases classified elsewhere; S80.821A Blister (nonthermal), right lower leg, initial encounter; X58.XXXA Exposure to other specified factors, initial encounter; R53.83 Other fatigue; R53.1 Weakness; M79.662 Pain in left lower leg; M79.661 Pain in right lower leg; I87.8 Other specified disorders of veins; Z68.39 Body mass index [BMI] 39.0-39.9, adult; Z79.899 Other long term (current) drug therapy; Z82.49 Family history of ischemic heart disease and other diseases of the circulatory system; Z83.3 Family history of diabetes mellitus; Z79.1 Long term (current) use of non-steroidal anti-inflammatories (NSAID)
CPT/HCPCS: 99285; 36415 ×5; 87040; 87070; 87205; 82553 ×2; 82607; 82550 ×2; 82728; 82746; 83540; 83550; 83735; 84443; 85025 ×5; 85610; 87077; 85045; 80053 ×5; 84484 ×2; 87186; 83036; 80061; 83880; 93971 ×2; 71046; 73590; 97597; G0378 ×6; J0295 ×5; J1650 ×4; J3490 ×3; J2405; J7050 ×5; J7030 ×2

== ENCOUNTER → 2019-03-23 | Outpatient (CLI) | payer BC ==
--- NOTE | 2019-03-24 09:28 | XCELERA REPORT ---
[address] [address] Lower Extremity Arterial Evaluation Name: YADI LI Age: 58 yrs Gender: Female : 1960 Patient Status: Outpatient Patient Location: [facility] Study Date: 03/23/2019 11:16 AM Procedure: A color flow and duplex scan of the lower extremity arteries was performed bilaterally with velocity and waveform anaylsis. Ankle brachial indicies performed. Reason For Study: ULCER OF RIGHT CALF Ordering Physician: ROMAN ORTEGA Performed By: Nando Reddy Measurements and Calculations Right Left MICROBIOLOGY TEACHER PSV 166.8 132.0 cm/sec Prox PFA PSV 111.0 -105.6cm/sec Prox SFA PSV 189.7 113.8 cm/sec Mid SFA PSV -134.4 -88.2 cm/sec Dist SFA PSV -58.9 -118.8cm/sec Prox Pop A PSV 125.7 97.4 cm/sec Mid SHARAN PSV 128.2 cm/sec Dist SHARAN PSV 24.0 cm/sec Dist COMPUTER SYSTEMS ANALYST PSV 54.8 cm/sec Dontrell Pedis PSV -79.0 -107.0cm/sec Right Side Arterial Evaluation Normal velocity and triphasic waveforms noted from the Common Femoral artery to the Anterior Tibial. Posterior tibial not evaluated due to bandaging. Ankle Brachial index 1.18. Left Side Arterial Evaluation Normal velocity and triphasic waveforms noted from the Common Femoral artery to the Posterior Tibial. Anterior tibial has collateral, biphasic flow, spectral broadening with low velocity. Dorsalis Pedis normal. . Ankle Brachial index 1.09. In the Posterior Tibial, Dorsalis Pedis not evaluable due to edema. Interpretation Summary No hemodynamically significant lesions in the right lower extremity only, on duplex imaging, at rest. Mild hemodynamically significant lesions in the left lower extremity only, on duplex imaging, at rest. Duplex study challenging due to bandaging. Right probably almost normal, left show disease in the Anterior Tibial. Also left foot edema. JUAN's are normal, suggesting no significant obstructive disease. : ROMAN ORTEGA > Roman Ortega
== END ==
LOC: SP 10:50
PROVIDERS: ATTEND Surgery
DX: L97.212 Non-pressure chronic ulcer of right calf with fat layer exposed (principal)
CPT/HCPCS: 93922; 93925

== ENCOUNTER 2019-06-01 09:25 | Day surgery (SDC) | payer BC ==
[~2019-06-01 09:25] MED LIST: CHONDR SU A NA/HYALUR INTRAOC KIT (SURGICARE) ONE; EPINEPHRINE INJ/PF 1 MG/1 ML AMPULE ONE; KETOROLAC TROMETHAMINE 0.45% 4 DROP/0.4 ML DROPERETTE OS PRN; LIDOCAINE 1%/PHENYLEPHRINE 1.5% 1 ML VIAL ONE; MIDAZOLAM 2 MG/2 ML INJ ONE; TRYPAN BLUE 0.06 % OPH SOLN 0.5 ML DISP.SYRIN ONE
[2019-06-01] MEDS: TROPICAMIDE 1% OPH SOLN 15 ML OS PRN ×3 (10:20→10:40)
[2019-06-01] MEDS: TETRACAINE HCL 0.5% OPH SOLN 4 ML OS PRN ×3 (10:20→10:58)
[2019-06-01] MEDS: CYCLOPENTOLATE 0.2%/PHENYLEPHRINE 1% OPH SOLN 2 ML OS PRN ×3 (10:20→10:40)
[2019-06-01] MEDS: BESIFLOXACIN HCL 0.6% OPH SUSP 5 ML BOTTLE OS PRN ×4 (10:20→11:17)
[2019-06-01] MEDS: DORZOLAMIDE HCL 2%/TIMOLOL MALEAT 0.5% OPH SOLN 10 ML OS PRN ×2 (11:16→11:17)
--- NOTE | 2019-06-01 12:51 | Operative Report ---
Operative Report-[facility] Operative Report: DATE OF SURGERY: 06/01/2019 PREOPERATIVE DIAGNOSIS: Cataracts, left eye POSTOPERATIVE DIAGNOSIS: Cataract, left eye OPERATION: Cataract extraction with insertion of a toric IOL of the left eye. Intraocular Lens Model: [21.5 sn6at4 rotated to 1 degree] reason for surgery was difficulty seeing at night secondary to glare from headlights SURGEON: Jordan Stafford MD ANESTHESIA: Topical PROCEDURE: After obtaining appropriate consent, the patient's left eye was prepped and draped in a sterile fashion as well as the surgeon in the sterile manner and cataract surgery was started. First a paracentesis blade was used to make a side-port incision. Viscoelastic was used to inflate the anterior chamber. Next a 2.4 mm incision was made with a 2.4 mm blade, clear corneal temporarily. A continuous capsulorrhexis was made using a cystotome and Utrata forceps. Following this hydrodissection was carried out to make the lens fully loose and mobile and it was rotated 90 degrees. Following this, a divide and conquer technique was used to phacoemulsify the lens. The remaining cortex was removed with an irrigation/aspiration. Provisc was instilled into the capsular bag to inflate the bag.The intraocular lens was placed. The remaining viscoelastic material was removed with irrigation/aspiration. Following this, the incision was found to be watertight. Besivance and Cosopt was instilled into the eye and a protective shield was placed over the eye. The patient was returned to the postoperative recovery in a stable condition.
== END 2019-06-01 12:00 | disposition home or self-care (01) ==
LOC: SC 09:25
PROVIDERS: ATTEND Internal Medicine
DX: H25.813 Combined forms of age-related cataract, bilateral (principal); H40.1131 Primary open-angle glaucoma, bilateral, mild stage; H04.123 Dry eye syndrome of bilateral lacrimal glands; H35.362 Drusen (degenerative) of macula, left eye; M06.9 Rheumatoid arthritis, unspecified; E78.00 Pure hypercholesterolemia, unspecified; I10 Essential (primary) hypertension; D64.9 Anemia, unspecified; Z79.899 Other long term (current) drug therapy
CPT/HCPCS: 66984; V2787; J2250; J3490 ×2; J0171; J2370; 142

== ENCOUNTER 2019-06-27 09:31 | Day surgery (SDC) | payer BC ==
[~2019-06-27 09:31] MED LIST changes: +KETOROLAC TROMETHAMINE 0.45% 4 DROP/0.4 ML DROPERETTE OD PRN; -KETOROLAC TROMETHAMINE 0.45% 4 DROP/0.4 ML DROPERETTE OS PRN; -MIDAZOLAM 2 MG/2 ML INJ ONE; -TRYPAN BLUE 0.06 % OPH SOLN 0.5 ML DISP.SYRIN ONE
[2019-06-27] MEDS: BESIFLOXACIN HCL 0.6% OPH SUSP 5 ML BOTTLE OD PRN ×4 (09:57→10:57)
[2019-06-27] MEDS: TROPICAMIDE 1% OPH SOLN 15 ML OD PRN ×3 (09:57→10:18)
[2019-06-27] MEDS: TETRACAINE HCL 0.5% OPH SOLN 4 ML OD PRN ×3 (09:57→10:28)
[2019-06-27] MEDS: CYCLOPENTOLATE 0.2%/PHENYLEPHRINE 1% OPH SOLN 2 ML OD PRN ×3 (09:57→10:18)
[2019-06-27] MEDS ORDERED: MIDAZOLAM 2 MG/2 ML INJ ONE (10:10)
[2019-06-27] MEDS ORDERED: FENTANYL CITRATE INJ/PF 100 MCG/2 ML AMPUL ONE (10:43)
[2019-06-27] MEDS: DORZOLAMIDE HCL 2%/TIMOLOL MALEAT 0.5% OPH SOLN 10 ML OD PRN ×2 (10:57)
--- NOTE | 2019-06-27 16:49 | Operative Report ---
Operative Report-[facility] Operative Report: DATE OF SURGERY: 06/27/2019 PREOPERATIVE DIAGNOSIS: Cataract, right eye POSTOPERATIVE DIAGNOSIS: Cataract, right eye OPERATION: Cataract extraction with insertion of an toric IOL of the right eye. Intraocular Lens Model: [21.5 sn6AT4 rotated to175 degrees ] Patient underwent surgery because her having trouble seeing small print SURGEON: Jordan Stafford MD ANESTHESIA: Topical PROCEDURE: After obtaining appropriate consent, the patient's right eye was prepped and draped in a sterile fashion as well as the surgeon in the sterile manner and cataract surgery was started. First a paracentesis blade was used to make a side-port incision. Viscoelastic was used to inflate the anterior chamber. Next a 2.4 mm incision was made with a 2.4 mm blade, clear corneal temporarily. A continuous capsulorrhexis was made using a cystotome and Utrata forceps. Following this hydrodissection was carried out to make the narciso fully loose and mobile and it was rotated. Following this, a divide and conquer technique was used to phacoemulsify the narciso. The remaining cortex was removed with an irrigation/aspiration. Provisc was instilled into the capsular bag to inflate the bag. The intraocular lens was placed. The remaining viscoelastic material was removed with irrigation/aspiration. Following this, the incision wa s found to be watertight. Besivance and Cosopt was instilled into the eye and a protective shield was placed over the eye. The patient was reurned to the postoperative recovery in a stable condition.
== END 2019-06-27 12:05 | disposition home or self-care (01) ==
LOC: SC 09:31
PROVIDERS: ATTEND Internal Medicine
DX: H25.811 Combined forms of age-related cataract, right eye (principal); Z96.1 Presence of intraocular lens; I10 Essential (primary) hypertension; Z79.899 Other long term (current) drug therapy
CPT/HCPCS: 66984; V2787; J2250; J3490 ×2; J0171; J3010; J2370